=== PATIENT | female | born 1960 | race American Indian/Alaskan Native ===

== ENCOUNTER 2019-01-02 14:57 | Emergency (ER) | payer OTHER ==
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
[2019-01-02] MEDS ORDERED: CATAPRES PO ONE (15:35)
[2019-01-02 16:34] VITALS: BP 153/103
[2019-01-02] MEDS ORDERED: ATIVAN IV STA ×2 (16:36→16:39)
[2019-01-02] MEDS ORDERED: ATIVAN ONE (16:40)
[2019-01-02 16:57] LABS: Hematocrit 24.5 % (30.3-42.9); Hemoglobin 7.4 gm/dl (10.1-14.3); Mean Corpuscular HGB Conc 30 % (30-34); Platelet Count 359 K/mm3 (140-440); Red Blood Count 3.95 M/mm3 (3.65-5.03)
[2019-01-02 16:58] LABS: Mean Corpuscular Volume 62 fl (79-97); Red Cell Distribution Width 20.5 % (13.2-15.2)
[2019-01-02 17:10] LABS: Bacteria,Urine 2+ /HPF (Negative); Bilirubin,Urine NEG (Negative); Blood,Urine NEG (Negative); Color,Urine Yellow (Yellow); Hyaline Casts,Urine 1 /LPF; Mucus,Urine FEW /HPF; Protein,Urine <15 mg/dL mg/dL (Negative); Urobilinogen,Urine < 2.0 mg/dL (<2.0)
[2019-01-02 17:25] LABS: BUN/Creatinine Ratio 13; Blood Urea Nitrogen 12 mg/dL (7-17); Calcium 9.3 mg/dL (8.4-10.2); Hemolysis Index 0
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
--- NOTE | 2019-01-02 17:51 | Cat Scan Report ---
PROCEDURE: CT HEAD/BRAIN WO CON TECHNIQUE: Spiral imaging of the brain was obtained without IV contrast. HISTORY: headache concussion COMPARISONS: None FINDINGS: Brain: Brain density appears normal. No evidence of intracranial hemorrhage. No parenchymal hemorr benedict, mass lesions or mass effect are seen. No abnormal extra-axial fluid collects or masses are see n. Nonspecific mineralization of the basal ganglia are visualized Ventricles: Ventricles are normal size and are midline. Bone Windows: No evidence of skull fracture. Paranasal sinuses: Clear. Mastoid air cells: Clear. IMPRESSION: Negative exam. No evidence of intracranial hemorrhage or skull fracture. This document is electronically signed by Mario Franz MD., Jan 02 2019 05:49:24 PM ET
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
[2019-01-02] MEDS ORDERED: TORADOL IV ONE (17:56)
== END 2019-01-02 18:20 | disposition home or self-care (01) ==
LOC: ED 14:57
DX: I10 Essential (primary) hypertension (principal); F41.9 Anxiety disorder, unspecified; R07.89 Other chest pain; A69.20 Lyme disease, unspecified; Z90.49 Acquired absence of other specified parts of digestive tract; V43.52XA Car driver injured in collision with other type car in traffic accident, initial encounter; Y93.89 Activity, other specified; Y92.488 Other paved roadways as the place of occurrence of the external cause; Y99.8 Other external cause status
CPT/HCPCS: 36415; 70450; 71046; 80048; 81001; 82550; 82962; 84484; 85027; 93005; 93010; 96374; 96375; 99285; J1885; J2060